=== PATIENT | female | born 1945 | race Two or more races ===

== ENCOUNTER 2017-01-16 12:20 | Emergency (ER) | payer MEDICAID ==
[2017-01-16 16:44] VITALS: BP 139/62
== END 2017-01-16 16:44 | disposition home or self-care (01) ==
LOC: ED 12:20
DX: G89.29 Other chronic pain (principal); R10.2 Pelvic and perineal pain; R03.0 Elevated blood-pressure reading, without diagnosis of hypertension; Z90.710 Acquired absence of both cervix and uterus; Z85.42 Personal history of malignant neoplasm of other parts of uterus